=== PATIENT | male | born 1995 | race Caucasian/White ===

== ENCOUNTER 2017-08-09 20:58 | Emergency (ER) | payer OTHER ==
--- NOTE | 2017-08-10 00:27 | ED ---
Chloe Maloney Thomas, scribed for Damaso Chacon MD on 08/09/17 at 2342 . Shortness of Breath - HPI Summary HPI Summary: The pt is a 22 y/o M presenting to the ED c/o SOB this evening. There was no associated chest pain. Pt denies fever and cough. He is not currently in pain and his breathing has become more regular since arriving to the ED. He has no hx of asthma, panic attacks, or anxiety. - History of Current Complaint Chief Complaint: EDShortnessOfBreath Time Seen by Provider: 08/09/17 23:28 Hx Obtained From: Patient Onset/Duration: Sudden Onset - this evening Current Severity: Mild Associated Signs & Symptoms: Negative - Allergy/Home Medications Allergies/Adverse Reactions: Allergies Allergy/AdvReac Type Severity Reaction Status Date / Time No Known Allergies Allergy Verified 08/09/17 21:09 PMH/Surg Hx/FS Hx/Imm Hx Previously Healthy: Yes Endocrine/Hematology History: Denies: Hx Diabetes Psychiatric History: Denies: Hx Anxiety Infectious Disease History: No Infectious Disease History: Denies: Traveled Outside the [place] in Last 30 Days - Family History Known Family History: Positive: Cardiac Disease Negative: Diabetes - Social History Occupation: Student Lives: Dormitory/Roommates Review of Systems Negative: Fever Negative: Chest Pain Positive: Shortness Of Breath All Other Systems Reviewed And Are Negative: Yes Physical Exam - Summary Physical Exam Summary: VITAL SIGNS: Reviewed. GENERAL: Patient is a well-developed and nourished male who is lying comfortable in the stretcher. Patient is not in any acute respiratory distress. HEAD AND FACE: No signs of trauma. No ecchymosis, hematomas or skull depressions. No sinus tenderness. EYES: PERRLA, EOMI x 2, No injected conjunctiva, no nystagmus. EARS: Hearing grossly intact. Ear canals and tympanic membranes are within normal limits. MOUTH: Oropharynx within normal limits. NECK: Supple, trachea is midline, no adenopathy, no JVD, no carotid bruit, no c- spine tenderness, neck with full ROM. CHEST: Symmetric, no tenderness at palpation LUNGS: Clear to auscultation bilaterally. No wheezing or crackles. CVS: Regular rate and rhythm, S1 and S2 present, no murmurs or gallops appreciated. ABDOMEN: Soft, non-tender. No signs of distention. No rebound no guarding, and no masses palpated. Bowel sounds are normal. EXTREMITIES: FROM in all major joints, no edema, no cyanosis or clubbing. NEURO: Alert and oriented x 3. No acute neurological deficits. Speech is normal and follows commands. SKIN: Dry and warm Triage Information Reviewed: Yes Vital Signs On Initial Exam: Initial Vitals Temp Pulse Resp BP Pulse Ox 98.8 F 100 20 157/82 97 08/09/17 21:05 08/09/17 21:05 08/09/17 21:05 08/09/17 21:05 08/09/17 21:05 Vital Signs Reviewed: Yes Diagnostics - Vital Signs Vital Signs Temp Pulse Resp BP Pulse Ox 08/09/17 23:00 99.0 F 100 16 135/72 99 08/09/17 21:05 98.8 F 100 20 157/82 97 - Laboratory Lab Statement: Any lab studies that have been ordered have been reviewed, and results considered in the medical decision making process. - Radiology CXR Xray Interpretation: No Acute Changes - Negative CXR, pending official report. Dr. Chacon has reviewed this report. Radiology Interpretation Completed By: ED Physician Course/Dx - Course Assessment/Plan: The patient is diagnosed with anxiety. His shortness of breath is secondary to anxiety. The patient is instructed to follow up with his primary care physician. - Diagnoses Provider Diagnoses: Anxiety Discharge - Discharge Plan Condition: Stable Disposition: HOME Patient Education Materials: Anxiety (ED) Referrals: No Primary Care Phys,NOPCP [Primary Care Provider] - Additional Instructions: Follow up with your primary care physician in 3-5 days. Return to the emergency department for any new or worsening symptoms. The documentation as recorded by the Chloe jackson Thomas accurately reflects the service I personally performed and the decisions made by Ines allred Abdul, MD.
[2017-08-10 00:42] VITALS: BP 141/81
--- NOTE | 2017-08-10 09:13 | RAD ---
Indication: Shortness of breath. Nasal congestion. Denies fever. Comparison: No relevant prior exams available on the [facility] PACS for comparison. Technique: Upright AP 2349 hours Report: Clear lungs and pleural spaces. Negative for pneumothorax. The heart, pulmonary vasculature, and mediastinal contours are unremarkable. Unremarkable osseous structures and soft tissue contours. IMPRESSION: No evidence for acute intrathoracic disease.
== END 2017-08-10 00:31 | disposition home or self-care (01) ==
LOC: ED 20:58
DX: R06.02 Shortness of breath (principal); F41.9 Anxiety disorder, unspecified
CPT/HCPCS: 71010; 99282